=== PATIENT | female | born 1980 | race Two or more races ===

== ENCOUNTER 2017-10-31 20:54 | Emergency (ER) | payer SELFPAY, MEDICAID ==
[2017-10-31 21:11] LABS: URINE HCG POC HCG POSITIVE (Negative)
[2017-10-31 21:42] LABS: BILIRUBIN,URINE NEGATIVE (NEG); CLARITY,URINE CLEAR; COLOR,URINE YELLOW; GLUCOSE,URINE NEGATIVE (NEG); NITRITE,URINE NEGATIVE (NEG); PROTEIN,URINE NEGATIVE (NEG-TRACE); UROBILINOGEN,URINE 0.2 mg/dL (0.2 mg/dL)
[2017-10-31 21:50] LABS: BACTERIA,URINE FEW /HPF (0-FEW); SQUAMOUS EPITHELIAL CELL,UR MOD /LPF
== END 2017-10-31 23:36 | disposition home or self-care (01) ==
LOC: ER 23:36
DX: O20.0 Threatened abortion (principal); O23.41 Unspecified infection of urinary tract in pregnancy, first trimester; Z3A.01 Less than 8 weeks gestation of pregnancy
CPT/HCPCS: 36415; 76801; 81001; 81025; 86900; 86901; 99285-25

== ENCOUNTER 2017-11-04 12:28 | Emergency (ER) | payer SELFPAY ==
[2017-11-04] MEDS: IV NORMAL SALINE 1000ML BAG 1,000 ML IV (12:55)
[2017-11-04 13:00] LABS: BILIRUBIN,URINE NEGATIVE (NEG); CLARITY,URINE CLEAR; COLOR,URINE YELLOW; GLUCOSE,URINE NEGATIVE (NEG); NITRITE,URINE NEGATIVE (NEG); PROTEIN,URINE NEGATIVE (NEG-TRACE); UROBILINOGEN,URINE 0.2 mg/dL (0.2 mg/dL)
[2017-11-04 13:01] LABS: ADD MAN DIFF? NO
[2017-11-04 13:06] LABS: BASO # 0.1 x10^3/uL (0.0-0.2); BASO % 1 % (0-3); EOS # 0.1 x10^3/uL (0.0-0.7); EOS % 1 % (0-3); HEMATOCRIT 38.3 % (36.0-47.0); HEMOGLOBIN 12.9 g/dL (12.0-15.5); LYMPH # 3.1 x10^3/uL (1.0-4.8); LYMPH % 24 % (24-48); MEAN CORPUSCULAR HEMOGLOBIN 30 pg (25-35); MEAN CORPUSCULAR HGB CONC 34 g/dL (31-37); MEAN CORPUSCULAR VOLUME 90 fL (79-100); MONO # 0.6 x10^3/uL (0.0-1.1); MONO % 5 % (0-9); NEUT # 9.2 x10^3uL (1.8-7.7); NEUT % 70 % (31-73); PLATELET COUNT 370 x10^3/uL (140-400); RED BLOOD COUNT 4.28 x10^6/uL (3.50-5.40); RED CELL DISTRIBUTION WIDTH 12.9 % (11.5-14.5); WHITE BLOOD COUNT 13.1 x10^3/uL (4.0-11.0)
[2017-11-04 13:13] LABS: ANION GAP 10 (6-14); BLOOD UREA NITROGEN 13 mg/dL (7-20); BUN/CREATININE RATIO 19 (6-20); CALCIUM 9.1 mg/dL (8.5-10.1); CARBON DIOXIDE 25 mmol/L (21-32); CHLORIDE 103 mmol/L (98-107); CREATININE 0.7 mg/dL (0.6-1.0); GFR 94.7; GLUCOSE 96 mg/dL (70-99); SODIUM 138 mmol/L (136-145)
[2017-11-04 13:18] LABS: PARTIAL THROMBOPLASTIN TIME 27 SEC (24-38); PROTHROMBIN TIME PATIENT 12.9 SEC (11.7-14.0)
[2017-11-04 13:19] LABS: ALBUMIN 3.3 g/dL (3.4-5.0); ALBUMIN/GLOBULIN RATIO 0.8 (1.0-1.7); ALK PHOS 122 U/L (46-116); ALT (SGPT) 44 U/L (14-59); AST (SGOT) 24 U/L (15-37); TOTAL BILIRUBIN 0.5 mg/dL (0.2-1.0); TOTAL PROTEIN 7.7 g/dL (6.4-8.2)
[2017-11-04 13:20] LABS: BACTERIA,URINE 0 /HPF (0-FEW); RBC,URINE OCC /HPF (0-2); SQUAMOUS EPITHELIAL CELL,UR MOD /LPF; WBC,URINE 0 /HPF (0-4)
[2017-11-04] MEDS ORDERED: ONDANSETRON PF 4 MG/2 ML VIAL. IV ×2 (14:30→15:45)
[2017-11-04] MEDS ORDERED: ACETAMINOPHEN 325 MG TABLET. PO (14:30)
[2017-11-04] MEDS: fentaNYL PF VIAL 100 MCG/2 ML VIAL IV ×3 (14:35→16:37)
[2017-11-04] MEDS: ONDANSETRON PF 4 MG/2 ML VIAL. IV (14:35)
[2017-11-04] MEDS ORDERED: LIDOCAINE 2% PF Vial for OR 5 ML VIAL. (14:54)
[2017-11-04] MEDS ORDERED: PROPOFOL 20 ML IV (14:54)
[2017-11-04] MEDS ORDERED: DEXAMETHASONE SOD PHOS 20 MG/5 ML VIAL. (15:37)
[2017-11-04] MEDS ORDERED: SEVOFLURANE 31 TO 60 MINUTES. IH (15:37)
[2017-11-04] MEDS ORDERED: ONDANSETRON PF 4 MG/2 ML VIAL. (15:37)
[2017-11-04] MEDS ORDERED: IV RINGERS,LACTATED 1000ML 1,000 ML IV (15:38)
[2017-11-04] MEDS ORDERED: MORPHINE SULFATE 2 MG/ML DISP.SYRIN. IV (15:45)
[2017-11-04] MEDS ORDERED: PROCHLORPERAZINE 10 MG/2 ML VIAL. IV (15:45)
[2017-11-04] MEDS ORDERED: fentaNYL PF VIAL 100 MCG/2 ML VIAL IV ×2 (15:45)
[2017-11-04] MEDS ORDERED: OXYTOCIN 10 UNIT/ML VIAL. (15:46)
[2017-11-04] MEDS ORDERED: fentaNYL PF VIAL 100 MCG/2 ML VIAL (16:13)
[2017-11-04] MEDS: LIDOCAINE 1% PF 2 ML VIAL. ID (16:33)
[2017-11-04] MEDS ORDERED: HYDROcodone/APAP 5/325MG 1 TAB TABLET (16:43)
[2017-11-04] MEDS: HYDROcodone/APAP 5/325MG 1 TAB TABLET PO (16:48)
== END 2017-11-04 17:28 | disposition home or self-care (01) ==
LOC: ER 12:28 → 3 NORTH 14:27
DX: O03.9 Complete or unspecified spontaneous abortion without complication (principal); O26.891 Other specified pregnancy related conditions, first trimester; R10.2 Pelvic and perineal pain; Z3A.01 Less than 8 weeks gestation of pregnancy
CPT/HCPCS: 36415; 51701; 76801; 76817; 80053; 81001; 84702; 85025; 85610; 85730; 88305; 96361; 96374; 96375; 96376; 99285-25; A7015; C1892; J1100; J2001; J2405; J2590; J2704; J3010; J7030; J7120